=== PATIENT | male | born 1940 | race Caucasian/White ===

== ENCOUNTER 2020-07-06 09:31 | Emergency (ER) | payer MEDICARE, OTHER, SELFPAY ==
[2020-07-06 09:34] VITALS: BP 123/62; PULSE 47; RESP 22; TEMP 36.4; O2SAT 87; BMI 34.7
--- NOTE | 2020-07-06 09:37 | CT_ITS ---
STUDY: CT BRAIN WITHOUT CONTRAST REASON FOR EXAM: Male, 80 years old. +LOC, FELL 15 FT FROM TREE STAND, LANDED ON BACK, C/O LT RIB AND CLAVICLE PAIN RADIATION DOSAGE (If Supplied By Facility): CTDIvol = ( 44.99 ) mGy, DLP = ( 863.6 ) mGycm TECHNIQUE: Transaxial CT imaging of the brain was performed without administration of intravenous contrast material. Individualized dose optimization techniques were used for this CT. COMPARISON: No relevant priors. FINDINGS: Normal soft tissue structures. Normal calvarium. Normal size ventricles and extra-axial spaces for the patient''s age. Normal white matter tracts of the cerebral hemispheres. Normal basal ganglia and thalami. Normal brainstem. Normal cerebellum. There is no intracranial hemorrhage. There are no findings of an acute ischemic infarction. Normal visualized paranasal sinuses. CT/Brain/Head without Contrast IMPRESSION: Normal unenhanced CT scan of the brain. Electronically Signed: Eric Douglass MD at 10:47 EST , Service support ,
--- NOTE | 2020-07-06 09:38 | EKG12_ITS ---
Test Reason : TRAUMA Blood Pressure : / mmHG Vent. Rate : 044 BPM Atrial Rate : 068 BPM P-R Int : 000 ms QRS Dur : 154 ms QT Int : 492 ms P-R-T Axes : 068 -37 056 degrees QTc Int : 420 ms Sinus rhythm with 2nd degree A-V block (Mobitz I) with 2:1 A-V conduction Left axis deviation Right bundle branch block Abnormal ECG Confirmed by ARCADIO BARKER, KAUSHIK ([id number]), editor newspaper NAYELY FAIRCHILD ([id number]) on 07/08/2020 8:45:46 AM Referred By: ERICA Confirmed By:KAUSHIK ERVIN MD
--- NOTE | 2020-07-06 09:38 | CT_ITS ---
STUDY: CT ABDOMEN AND PELVIS WITH CONTRAST REASON FOR EXAM: Male, 80 years old. +LOC, FELL 15 FT FROM TREE STAND, LANDED ON BACK, C/O LT RIB AND CLAVICLE PAIN RADIATION DOSAGE (If Supplied By Facility): CTDIvol = ( 24.07 ) mGy, DLP = ( 2347.56 ) mGycm TECHNIQUE: Transaxial images were obtained from the dome of the diaphragm to the symphysis pubis without oral contrast. IV 100mL Isovue-370 was administered. Sagittal and coronal images were reconstructed. Individualized dose optimization techniques were used for this CT. COMPARISON: None. FINDINGS: There is left lower lung airspace consolidation. There is small left pneumothorax. There are multiple left rib fractures. There is subcutaneous emphysema in the left lower chest. There are sternotomy wires. There are hypodensities suggesting small cysts in the liver. There is a solitary gallstone. Normal spleen. Normal pancreas. Normal bilateral adrenal glands. There are renal cysts measuring 1.4 cm on the right and 1.3 cm on the left . There is 0.3 cm stone at the lower pole of the right kidney. There is no hydronephrosis. Normal visualized stomach. Normal small intestine. There are multiple colonic diverticula consistent with diverticulosis. There is non-visualization of the appendix. There is diffuse atherosclerotic calcification of the abdominal aorta with elongation and tortuosity, but without a demonstrated aneurysm. Normal inferior vena cava. Normal retroperitoneum. Normal urinary bladder. There is postoperative change with resection of the prostate. Normal abdominal wall. There are diffuse degenerative changes of the visualized lumbar spine. There are multiple left lower rib fractures. There are left transverse process fractures of the L1-L4 vertebra. CT/Abdomen/Pelvis W IV Cont ONLY IMPRESSION: Left rib and lumbar transverse process fractures. No solid or injury. No obstruction. Gallstone. Right renal stone. Colonic diverticulosis. Electronically Signed: Eric Douglass MD at 10:42 EST , Service support ,
--- NOTE | 2020-07-06 09:39 | CT_ITS ---
STUDY: CT CHEST WITH CONTRAST REASON FOR EXAM: Male, 80 years old. +LOC, FELL 15 FT FROM TREE STAND, LANDED ON BACK, C/O LT RIB AND CLAVICLE PAIN RADIATION DOSAGE (If Supplied By Facility): CTDIvol = ( 24.07 ) mGy, DLP = ( 2347.56 ) mGycm TECHNIQUE: Transaxial imaging was performed following intravenous administration of IV 100mL Isovue-370. Multiplanar coronal and sagittal images were reformatted. Individualized dose optimization techniques were used for this CT. COMPARISON: None. FINDINGS: There is patchy airspace consolidation in the left lung. There is small left pneumothorax less than 10%. There is subcutaneous emphysema. Sternal cerclage wires are present from a prior sternotomy. Normal mediastinum. Normal hilar regions. Normal enhanced pulmonary arteries. There is atherosclerotic calcification of the aortic arch with tortuosity and elongation of the aortic arch and descending thoracic aorta. There are multi-level degenerative changes of the thoracic spine. There are acute eighth through twelfth thoracic left transverse process fractures There is acute fracture of the left clavicle. There is a comminuted acute fracture of the left scapula. There are acute fractures of the first through twelfth ribs. Multiple ribs are fractured in several places consistent with flail chest. There are healed right rib fractures. There is no demonstrated abnormality of the visualized upper abdomen. CT/Chest WITH Contrast IMPRESSION: Left-sided clavicle, scapula, ribs, and transverse process fractures. Left lung contusion. Small left pneumothorax. Electronically Signed: Eric Douglass MD at 11:00 EST , Service support ,
--- NOTE | 2020-07-06 09:39 | CT_ITS ---
STUDY: CT CERVICAL SPINE WITHOUT CONTRAST REASON FOR EXAM: Male, 80 years old. +LOC, FELL 15 FT FROM TREE STAND, LANDED ON BACK, C/O LT RIB AND CLAVICLE PAIN RADIATION DOSAGE (If Supplied By Facility): CTDIvol = ( 30.05 ) mGy, DLP = ( 688.51 ) mGycm TECHNIQUE: High resolution transaxial imaging was performed without contrast material. Sagittal and coronal images were reconstructed. Individualized dose optimization techniques were used for this CT. COMPARISON: None FINDINGS: Normal craniovertebral junction. There are degenerative changes of the anterior atlantoaxial articulation. Normal odontoid process. Normal cervical lordosis. Normal vertebral bodies and posterior osseous elements. There are acute left first, second, and third rib fractures. There is left lung consolidation. The small left pneumothorax. C2-3: Normal endplates. Normal disc height and morphology. Facet spurring on the left more than the right. Normal central canal and intervertebral neuroforamina. C3-4: Normal endplates. Normal disc height and morphology. Facet spurring. Normal central canal and intervertebral neuroforamina. C4-5: Disc bulge with right paracentral disc protrusion. Facet spurring. Moderate canal stenosis. Neural foramina are patent. C5-6: Disc space narrowing with endplate change. Disc bulge and spurring to the right. Facet spurring. Moderate canal stenosis. Uncovertebral spurring with bilateral foraminal narrowing. C6-7: Normal endplates. Normal disc height and morphology. Mild facet spurring. Normal central canal and intervertebral neuroforamina. C7-T1: Normal endplates. Normal disc height and morphology. Normal central canal and intervertebral neuroforamina. Normal visualized soft tissue structures. There are atherosclerotic calcifications of the carotid arteries. There is vascular stent on the right. CT/Spine Cervical without Contras IMPRESSION: Multilevel degenerative changes, as described above. Left rib fractures. Electronically Signed: Eric Douglass MD at 10:52 EST , Service support ,
--- NOTE | 2020-07-06 09:40 | RAD_ITS ---
STUDY: X-RAY CHEST REASON FOR EXAM: Male, 80 years old. Fall out of a tree stand appox. 15 ft. pain in left upper chest. TECHNIQUE: Single AP portable view of the chest. COMPARISON: None. FINDINGS: There is visualized subcutaneous gas in the left chest wall. Sternal cerclage wires are present from a prior sternotomy. Normal mediastinum and mariely. Normal visualized pulmonary arteries. Normal visualized aortic arch and descending thoracic aorta. Normal visualized thoracic spine. There are multiple left-sided rib fractures. Left rib 23, 4, 5, 6,7,8,9. There is increased density in the left chest with atelectasis. Findings are suspicious for left-sided scapular fracture and left-sided clavicle fracture. There is no demonstrated abnormality of the visualized soft tissue structures of the upper abdomen. RAD/Chest 1 View (Portable) IMPRESSION: Multilevel left-sided rib fractures with peripheral gas formation in the soft tissues as well as probable left-sided scapular fracture and clavicle fracture. Recommend correlation with CT scan of the chest performed the same day. A pneumothorax is not definitively seen but should be excluded. Probable early left pulmonary contusion. Electronically Signed: Milady Garvin MD at 10:50 EST Tel , Service support ,
[2020-07-06] MEDS: 0.9% Normal Saline 1,000 ML 150 ML IV (09:46)
[2020-07-06 09:48] VITALS: PULSE 45; RESP 22; O2SAT 97
--- NOTE | 2020-07-06 09:52 | ED.VIS.FALL ---
History of Present Illness Chief Complaint: Trauma Informant: Patient Occurred: Today Mechanism/Context: - - 15 foot fall from tree stand Narrative: Patient presents via EMS after falling 15 feet out of a tree stand. Patient reported landed on his back. He did lose consciousness briefly. He was able to call a friend nearby for help. Patient's primary complaint is left rib and left clavicle pain. - Past Medical History (1) H/O prostatectomy Status: Chronic Past Medical History - Allergies and Home Meds Allergies/Adverse Reactions: Allergies meperidine [From Demerol] Allergy (Verified 07/06/20 09:34) PT UNSURE OF REACTION morphine Allergy (Verified 07/06/20 09:34) PT UNSURE OF REACTION Surgical History: - - Prostatectomy, disc surgery Lives: Spouse/ Significant Other Review of Systems General: Denies: Chills, Fever Eyes: Denies: Visual changes - bilaterally ENT: Denies: Bilateral ear pain Cardiovascular: Reports: Chest pain Respiratory: Reports: Dyspnea Gastrointestinal: Denies: Vomiting Musculoskeletal: Denies: Back pain, Extremity Pain Neurological: Denies: Parasthesia Hematologic: Denies: Easy bruising, Easy bleeding Allergy: Denies: Uticaria Physical Exam Vital Signs/Narrative: Vital Signs Temp Pulse Resp BP Pulse Ox 07/06/20 09:48 45 L 22 H 97 07/06/20 09:34 97.6 F L 47 L 22 H 123/62 H 87 Inital Vital Signs reviewed: Yes General: Well nourished, Well developed Head: Normocephalic Cardiovascular: Irregular, Bradycardia Respiratory: Diminished - Diminished breath sounds on the left. No crepitus. Abdomen: Soft, Tender - Mild right upper quadrant tenderness.. Negative for: Guarding, Rebound tenderness Neurological: Alert, Oriented x3 Psychological: Normal affect Diagnostic/Tx/Re-eval Chest X-Ray - ED: 1 View, Read by ED Physician, - - Left pulmonary contusion. 07/06/20 09:37 Brain/Head without Contrast [CT] Stat 07/06/20 09:38 Abdomen/Pelvis W IV Cont ONLY [CT] Stat 07/06/20 09:39 CT Cervical [Spine Cervical without Contras] [CT] Stat Chest WITH Contrast [CT] Stat 07/06/20 09:40 Chest 1 View (Portable) [RAD] Stat Laboratory Results 07/06/20 07/06/2007/06/21 09:50 09:50 09:50 WBC 33.1 H* RBC 5.30 Hgb 16.3 Hct 48.5 MCV 91.5 MCH 30.8 MCHC 33.6 RDW Std Deviation 40.0 RDW Coeff of Ramon 11.9 Plt Count 236 MPV 10.5 Immature Gran % (Auto) 1.000 H Neut % (Auto) 84.9 H Lymph % (Auto) 5.9 L Nuckolls % (Auto) 7.8 Eos % (Auto) 0.2 Baso % (Auto) 0.2 Absolute Neuts (auto) 28.1 H Absolute Lymphs (auto) 1.94 Nucleated RBC % 0 Differential Comment SCANNED Diff Path Review November foll PT 13.2 INR 1.1 APTT 31.8 Sodium 141 Potassium 3.6 Chloride 107 Carbon Dioxide 29.0 Anion Gap 5 BUN 18 Creatinine 1.54 H Estim Creat Clear Calc 39.50 Est GFR (MDRD) Af Amer 56 L Est GFR (MDRD) Non-Af 46 L BUN/Creatinine Ratio 11.7 Glucose 146 H Calcium 9.2 Total Bilirubin 1.40 H Direct Bilirubin 0.31 H AST 90 H ALT 64 H Alkaline Phosphatase 79 Total Protein 6.7 Albumin 3.7 Globulin 3.0 - EKG Initial EKG Interpretation: - - Sinus rhythm with second-degree block, variable conduction. Ventricular rate 44 on EKG. Right bundle branch block is noted. No acute ST change. - Medical Decision Making After seeing patient he was discussed with ER physician at [facility] for trauma transfer. Because [facility] was 40 minutes out for transport patient was sent to CT. Formal reports are not back currently. Per my review head CT and C-spine do not show any significant findings. CT chest shows very small pneumothorax with at least 7 rib fractures and a scapular fracture. Pulmonary contusions are noted. No obvious findings on my quick review of CT abdomen pelvis. Patient was updated with these findings but I does understand this is my review and not the formal radiologist interpretation. [facility] is at bedside and ready for transport at this time. Disposition: Transfer Transferred to: [facility] Critical care time (excluding procedures): 30-74 minutes ED Disposition - Plan for ED Patient: Disposition: [facility] Diagnosis: Rib fractures, Pulmonary contusion, Fall
[2020-07-06 10:07] LABS: Absolute Lymphocyte Count 1.94 X10^3/uL (0.83-4.51); Absolute Neutrophil Count 28.1 X10^3/uL (2.0-7.7); Basophil# 0.08 X10^3/uL; Basophil% 0.2 % (0-1); Eosinophil# 0.05 X10^3/uL; Eosinophils% 0.2 % (0-5); Hematocrit 48.5 % (40-54); Hemoglobin 16.3 g/dL (13.0-16.5); Lymphocyte # 1.94 X10^3/ul (4.0); Lymphocyte % 5.9 % (19-41); Mean Corp Hgb Conc 33.6 g/dL (32-36); Mean Corpuscular Hgb 30.8 pg (27.0-32.0); Mean Corpuscular Volume 91.5 fL (80-94); Mean Platelet Vol. 10.5 fl (6.2-12.0); Monocyte# 2.57 X10^3/uL; Monocyte% 7.8 % (0-10); NRBC Flagged by Analyzer 0 % (0-5); Neutrophil # 28.11 X10^3/uL (2.7-7.7); Neutrophil % 84.9 % (47-70); POSITIVE COUNT YES; POSITIVE DIFFERENTIAL YES; Platelet Count 236 K/mm3 (150-450); RBC Distribution Width CV 11.9 % (11.6-14.6)
[2020-07-06 10:09] LABS: Differential Indicated SCAN CRITERIA MET; White Blood Count 33.1 K/mm3 (4.4-11.0)
[2020-07-06 10:17] LABS: International Normalized Ratio 1.1; Prothrombin Time (Protime)PT. 13.2 SECONDS (11.7-14.9)
[2020-07-06 10:18] LABS: Partial Thromboplast Time 31.8 Seconds (24.1-36.2)
[2020-07-06 10:21] LABS: AST(SGOT) 90 U/L (15-37); Alanine Aminotransfer ALT/SGPT 64 U/L (16-61); Albumin, Serum 3.7 g/dL (3.2-5.0); Alkaline Phosphatase 79 U/L (45-117); Anion Gap 5 (5-15); BUN 18 mg/dL (7-18); BUN/Creat Ratio 11.7 RATIO (10-20); Bilirubin, Direct 0.31 mg/dL (0.00-0.30); Calcium,Total 9.2 mg/dL (8.5-10.1); Chloride 107 mmol/L (98-107); Creatinine, Serum 1.54 mg/dL (0.70-1.30); EST Glomerular Filtration Rate 46 mL/min (>60); Est Glom Filt Rate - Afr Amer 56 mL/min (>60); Glucose 146 mg/dL (74-106); Potassium 3.6 mmol/L (3.5-5.1); Protein, Total 6.7 g/dL (6.4-8.2); Sodium Level 141 mmol/L (136-145)
[2020-07-06 10:29] LABS: Differential Comment SCANNED
[2020-07-08 13:26] LABS: Pathologist Review Reviewed
== END 2020-07-06 10:57 | disposition short-term general hospital (02) ==
PROVIDERS: Emergency Provider Emergency Medicine
DX: S22.42XA Multiple fractures of ribs, left side, initial encounter for closed fracture (principal); S27.321A Contusion of lung, unilateral, initial encounter; W14.XXXA Fall from tree, initial encounter; Y93.9 Activity, unspecified; Y92.9 Unspecified place or not applicable; I44.1 Atrioventricular block, second degree; I45.10 Unspecified right bundle-branch block
CPT/HCPCS: 70450; 71045; 71260; 72125; 74177; 80048; 80076; 85025; 85610; 85730; 93005; 96360; 99285; J7030; Q9967